=== PATIENT | male | born 1985 | race Two or more races ===

== ENCOUNTER 2024-08-11 07:15 | Outpatient (CLI) | payer OTHER | END 2024-08-11 07:22 | disposition home or self-care (01) | LOC: NUCLEAR 07:15 | DX: E04.1 Nontoxic single thyroid nodule (principal) ==

== ENCOUNTER 2024-08-12 06:57 | Outpatient (CLI) | payer OTHER | END 2024-08-12 06:58 | disposition home or self-care (01) | LOC: NUCLEAR 06:57 | DX: E04.1 Nontoxic single thyroid nodule (principal) ==